=== PATIENT | male | born 1980 | race Caucasian/White ===

== ENCOUNTER 2021-11-28 14:16 | Emergency (ER) | payer MEDICAID ==
[~2021-11-28] VITALS: Ht 182.9 cm; Wt 73.5 kg
[2021-11-28 14:16] VITALS: BP_SYST 132
--- NOTE | 2021-11-28 14:16 | NUR ---
BROUGHT INTO BED #8 AND TRIAGED. REPORT GIVEN TO EVAN
--- NOTE | 2021-11-28 14:17 | NUR ---
8 STICHES PLACED TO FOREHEAD, BACITRACIN APPLIED, COVERED WITH ABDAPTIC AND KERLIX GAUZE. PT DENIES PAIN. TAKEN FOR CT. SCAN. Addendum: 11/28/21 at 1513 by [email or web address] CHARTING ON WRONG PT.
--- NOTE | 2021-11-28 14:20 | NUR ---
RECEIVED PT FROM REINA HILL. PT HAS C/O LEFT FOOT INCREASED SWELLING, REDNESS AND PAIN. PT HAD LEFT FOOT CUT BY GLASS AND STICHES PLACED AT [facility]. RESP E/U. ON R/A. DENIES N/V/D/C. VSS. NO OTHER DISTRESS NOTED. SIDERAILS UP X2.
--- NOTE | 2021-11-28 14:48 | NUR ---
DR COLBY IN TO ROOM #8 FOR EVALUATION
[2021-11-28] MEDS ORDERED: cefTRIAXone 1 GM VIAL IM ONE (15:00)
--- NOTE | 2021-11-28 15:04 | NUR ---
EMT REMOVED 3 STICHES FROM LEFT FOOT CLOSED WOUND. PT STATED [address] AND ONLY 3 WERE LEFT. SITE CLEANSED WITH N/S AND PATTED DRY, ELEVATED.
--- NOTE | 2021-11-28 15:30 | NUR ---
ROCEPHIN IM GIVEN TO RIGHT BUTTOCK.
--- NOTE | 2021-11-28 16:02 | NUR ---
posterior short leg splint applied to left leg and secured with an shahzad wrap. Pt PMS present before and after splint application with no changes in pain level
[2021-11-28] MEDS ORDERED: CEPH-548 PO (16:11)
[2021-11-28] MEDS ORDERED: IBUP-1969 PO (16:11)
--- NOTE | 2021-11-28 16:25 | NUR ---
Patient given written and verbal discharge instructions and verbalizes understanding. ER MD discussed with patient the results and treatment provided. Patient in stable condition. ID arm band removed. Rx of IBUPROPHEN AND CEPHALEXIN given. Patient educated on pain management and to follow up with PMD. Pain Scale 0/10. Opportunity for questions provided and answered. Medication side effect fact sheet provided.
[2021-11-28 16:31] VITALS: BP_SYST 132
== END 2021-11-28 16:25 | disposition home or self-care (01) ==
LOC: SED 14:16
DX: L03.116 Cellulitis of left lower limb (principal); R22.42 Localized swelling, mass and lump, left lower limb; Z79.899 Other long term (current) drug therapy
CPT/HCPCS: 99283; 29515; 73630; 96372; J0696